=== PATIENT | female | born 1990 | race Caucasian/White ===

== ENCOUNTER 2016-06-12 13:41 | Emergency (ER) | payer OTHER ==
[~2016-06-12] VITALS: Ht 162.6 cm; Wt 59.0 kg
[~2016-06-12 13:41] MED LIST: BACTRIM DS 8001 TAB PO; CLEOCIN HCL300 MG PO; DOXYCYCLINE100 MG PO; FLEXERIL10 MG PO; MOBIC 15MG15 MG PO; MOTRIN800 MG PO; NAPROSYN 500 M500 MG PO; PERCOCET 325 MG1 TA2 PO; PRILOSEC OTC20 MG PO; VICODIN 500 MG-1 TAB PO; ZOFRAN ODT4 MG SL; ZOFRAN PO
[2016-06-12] MEDS ORDERED: MEDROL4 M2 PO (16:29)
[2016-06-12] MEDS ORDERED: AZITHROMYCIN250 M1 PO (16:29)
[2016-06-12] MEDS ORDERED: MAGIC MOUTHWASH PO (16:29)
--- NOTE | 2016-06-12 16:30 | ED THROAT/DENTAL COMPLAINT ---
History of Present Illness General Chief Complaint: Sore Throat, Dental Pain Stated Complaint: SORE THROAT Source: patient Exam Limitations: no limitations Vital Signs & Intake/Output Vital Signs & Intake/Output Vital Signs Date Time Temp Pulse Resp B/P B/P Pulse O2 O2 Flow FiO2 Mean Ox Delivery Rate 06/12 1411 97.9 64 16 99/66 98 Room Air Allergies Coded Allergies: dextromethorphan (HIVES 05/07/15) Reconcile Medications Azithromycin 250 MG TABLET 1 DP PO AD PHARYNGITIS 2 the first day followed by 1 for days 2-5 [MAGIC MOUTHWASH] 15 ML ORAL.SUSP 5 ML PO TID PRN PHARYNGITIS SWISH AND SWALLOW 1/3 BENADRYL 1/3 LIDOCAINE 1/3 MAALOX Methylprednisolone. (Medrol) 4 MG TAB.DS.PK 1 DP PO AD PHARYNGITIS 6 on day 1 then reduce by one tablet daily until gone [ZOFRAN] 4 MG ODT 1-2 TAB PO Q8 PRN NAUSEA AND VOMITING Triage Note: PT COMPLAINS OF SORE THROAT AND COUGH X 1 WEEK. STATES THAT INES SELTZER IS NOT HELPING. AFEBRILE THROAT CULTURE SENT Triage Nurses Notes Reviewed? yes : No Patient currently breastfeeds: No HPI: This patient is a 25 her old female who presented to the emergency department today for evaluation of sore throat and dry cough 2 weeks. The patient reported that she has been having a difficult time swallowing as it makes the pain worse. She reported the pain in her throat is a 10 out of 10, sharp and throbbing, and nonradiating. She has been taking Ines-Nazareth, ibuprofen, Tylenol, and NyQuil without any relief of her symptoms. The patient denied any fevers, chills, chest pain, difficult breathing, ear pain, sinus pressure, headaches, abdominal pain, or any other associated symptoms. (DENNY ANTON,KENISHA) Past History Travel History Traveled to [place] past 21 day No Medical History Any Pertinent Medical History? 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 No (KENISHA BALDWIN PA-C) Review of Systems Review of Systems Constitutional: Reports: no symptoms. EENTM: Reports: see HPI. Respiratory: Reports: no symptoms. Cardiovascular: Reports: no symptoms. GI: Reports: no symptoms. Musculoskeletal: Reports: no symptoms. Skin: Reports: no symptoms. Neurological/Psychological: Reports: no symptoms. All Other Systems: Reviewed and Negative (KENISHA BALDWIN PA-C) Physical Exam Physical Exam Mouth/Throat: pharyngeal injection. No oropharyngeal lesions. No tonsillar exudates. Mild edema to the right tonsil compared to the left. No uvular shift. No uvular edema. No trismus or drooling. No mandibular or maxillary edema. No evidence of edema of the trachea Comments: Well-developed well-nourished person in no acute distress HEENT: Head normocephalic/atraumatic, moist mucous membranes Pupils equally round and reactive to light. Neck: Supple, no lymphadenopathy Back: Normal gait. Normal inspection Cardiovascular: Regular rate and rhythm with no murmurs Respiratory: Speaking in full sentences No respiratory distress. Breath sounds clear to auscultation bilaterally with no wheezes, rales, or rhonchi. No stridor Extremity: Normal and equal pulses Neuro: Alert oriented x3, cranial nerves II through XII grossly intact. Skin: No appreciable rash on exposed skin, skin is warm and dry. Psych: Mood and affect is normal Core Measures ACS in differential dx? No Severe Sepsis Present: No Septic Shock Present: No (KENISHA BALDWIN PA-C) Progress Differential Diagnosis: epiglottitis, Ludwigs angina, meningitis, odontogenic abscess, pieter-tonsillar abscess, pharyngeal for. body, stomatitis/gingivitis, strep pharyngitis, tooth fracture, laryngitis Plan of Care: Orders Procedure Date/time Status THROAT CULTURE W/QUICK STREP 06/12 1404 Active Laboratory Tests 06/12/16 1608: Urine Test Cancelled Departure Departure Disposition: HOME OR SELF CARE Condition: Stable Clinical Impression Primary Impression: Pharyngitis Qualifiers: Pharyngitis/tonsillitis etiology: unspecified etiology Qualified Code: J02.9 - Acute pharyngitis, unspecified Referrals: IAN LOPEZ APRN (PCP/Family) LEIA STOUT,THALIA Additional Instructions: Use Magic mouthwash as prescribed: Swish and swallow. Take antibiotic as prescribed and for the full duration. Take Medrol Dosepak as prescribed. Please follow-up with your primary care physician as well as with the ENT physician whose information has been provided to you in this packet. Return for any worsening symptoms or concerns. Departure Forms: Customer Survey General Discharge Information Prescriptions: Current Visit Scripts [MAGIC MOUTHWASH] 5 ML PO TID PRN PHARYNGITIS #150 ML SWISH AND SWALLOW 1/3 BENADRYL 1/3 LIDOCAINE 1/3 MAALOX Azithromycin 1 DP PO AD #6 TAB 2 the first day followed by 1 for days 2-5 Methylprednisolone. (Medrol) 1 DP PO AD #1 DP 6 on day 1 then reduce by one tablet daily until gone (DENNY ANTON,KENISHA) PA/SALES REPRESENTATIVE PRINTING Co-Sign Statement Statement: ED Attending supervision documentation- [] I saw and evaluated the patient. I have also reviewed all the pertinent lab results and diagnostic results. I agree with the findings and the plan of care as documented in the PA's/SALES REPRESENTATIVE PRINTING's documentation. [X] I have reviewed the ED Record and agree with the PA's/SALES REPRESENTATIVE PRINTING's documentation. [] Additions or exceptions (if any) to the PAs/SALES REPRESENTATIVE PRINTING's note and plan are summarized below: [] (EDUARDO STOUT,ALISON)
[2016-06-12 16:50] VITALS: BP 105/68
== END 2016-06-12 16:51 ==
LOC: ERH 13:41
DX: J02.9 Acute pharyngitis, unspecified (principal); F17.210 Nicotine dependence, cigarettes, uncomplicated
CPT/HCPCS: 81025

== ENCOUNTER 2017-06-19 21:31 | Emergency (ER) | payer OTHER ==
[~2017-06-19] VITALS: Ht 167.6 cm; Wt 79.4 kg
[~2017-06-19 21:31] MED LIST changes: +AZITHROMYCIN250 M1 PO; +MAGIC MOUTHWASH PO; +MEDROL4 M2 PO
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
[2017-06-19 22:48] VITALS: BP 128/62
== END 2017-06-19 22:49 | disposition left against medical advice (07) ==
LOC: ERH 21:31
DX: M54.2 Cervicalgia (principal)
CPT/HCPCS: 96372; J1885